=== PATIENT | female | born 1985 | race Caucasian/White ===

== ENCOUNTER 2022-06-01 13:25 | Observation (INO) | payer MEDICAID ==
[~2022-06-01] VITALS: Ht 165.1 cm; Wt 93.0 kg
[2022-06-01] MEDS ORDERED: PNV1TABL76 PO (14:02)
[2022-06-01 14:48] LABS: CLARITY URINE CLOUDY (CLEAR); COLOR URINE DARK YELLOW (YELLOW); KETONES URINE TRACE (NEGATIVE); LEUKOCYTE ESTERASE URINE TRACE (NEGATIVE); NITRITE URINE NEGATIVE (NEGATIVE); OCCULT BLOOD URINE NEGATIVE (NEGATIVE); PROTEIN URINE TRACE (NEGATIVE); SPECIFIC GRAVITY URINE 1.031 (1.005-1.030)
== END 2022-06-01 15:10 | disposition home or self-care (01) ==
LOC: 8 EST A/PP 13:25
PROVIDERS: ADMIT Specialist; ATTEND Specialist
DX: O36.8130 Decreased fetal movements, third trimester, not applicable or unspecified (principal); O62.9 Abnormality of forces of labor, unspecified; Z3A.29 29 weeks gestation of pregnancy
CPT/HCPCS: 59025; 76805; 76818; 81003; G0378; 99281; G0379